=== PATIENT | female | born 1970 ===

== ENCOUNTER 2017-02-14 04:44 | Observation (INO) | payer BC ==
--- NOTE | ~2017-02-14 | OP ---
Record Of Operation [facility] [address] [place]. [address] NAME: TOÑO BRENNAN V : 74 STATUS : ADM Johnathan PAT#: [id number] AGE: 46 ADM/REG DATE : 02/14/17 MR#: [id number] REPORT SERV DATE: 02/14/17 DICTATED BY: LOGAN ROBISON DATE: 02/14/17 REPORT STATUS : Draft TRANSCRIBED BY: MODL DATE: 02/14/17 DATE OF PROCEDURE: 02/14/2017 PREOPERATIVE DIAGNOSIS: Right trimalleolar ankle fracture. POSTOPERATIVE DIAGNOSIS: Right trimalleolar ankle fracture. PROCEDURE: Open treatment of right trimalleolar ankle fracture without fixation of posterior lip. SURGEON: Logan Robison MD ANESTHESIA: General. ESTIMATED BLOOD LOSS: Ten. IMPLANTS: Arthrex ankle system. SPECIMEN: None. ANTIBIOTICS: Ancef was given prior to incision. HISTORY: The patient is a 46-year-old, who fell last night while dancing and sustained a trimalleolar ankle fracture. We discussed risks and benefits of surgery and nonoperative treatment with her. She elected for surgery due to displacement of the fracture. We discussed risks including cardiopulmonary complication from anesthesia, damage to surrounding tissues, infection, wound healing complications, nonunion, failure of implants. OPERATIVE NOTE: The patient was seen in the preoperative area, consented, and marked. We answered all questions, she had to her satisfaction. She was then taken back to the operative suite and placed in supine position under general anesthesia. We prepped and draped the right leg in a sterile fashion, and then paused to perform a time-out confirming the correct patient, procedure, diagnosis, and extremity. We made an incision over the right distal fibula and dissected down to the distal fibula. I identified the fracture, it was comminuted fracture with two posterior butterfly fragments. We were able to reduce the distal fragment to the proximal fragment and held in place with a clamp. I then placed a plate laterally. We pinned our plate in place and then checked on fluoroscopy to confirm the correct placement of our implants and our fracture reduction. We then fixated our plate with four screws proximally and five screws distally holding our fracture appropriately reduced. I used fluoroscopy throughout the process of this implant placement. When that was completed, we took x-rays of the mortise and the fibula was well aligned. We then turned our attention to the medial malleolus. I made an incision directly over the medial malleolus, dissected down the fracture line. I was able to manually reduce the fracture under direct visualization, placed a clamp across Record Of Operation [facility] [address] [place]. [address] NAME: TOÑO BRENNAN V : 74 STATUS : ADM Johnathan PAT#: [id number] AGE: 46 ADM/REG DATE : 02/14/17 MR#: [id number] REPORT SERV DATE: 02/14/17 DICTATED BY: LOGAN ROBISON DATE: 02/14/17 REPORT STATUS : Draft TRANSCRIBED BY: MODL DATE: 02/14/17 and then placed two pins from distal to proximal up across the fracture. I then placed two 4.0 cannulated screws over these pins under fluoroscopy guidance. When that was completed, we took our final x-rays, AP, lateral, mortise x-rays as well as stress x-ray. When that was completed, we irrigated all the wounds, closed the wounds, placed in a sterile splint. She was awakened with no complications, taken to the PACU in stable condition. POSTOPERATIVE PLAN: She will be discharged home today. We will follow her up in two weeks. XENIA/REI Logan Robison MD / [id number] CC: Logan Robison MD
--- NOTE | ~2017-02-14 | HP ---
History And Physical [address] [place]. [address] NAME: TOÑO BRENNAN V : 74 STATUS : ADM Johnathan PAT#: [id number] AGE: 46 ADM/REG DATE : 02/14/17 MR#: [id number] REPORT SERV DATE: 02/14/17 DICTATED BY: LOGAN ROBISON DATE: 02/14/17 REPORT STATUS : Draft TRANSCRIBED BY: MODL DATE: 02/14/17 DATE OF ADMISSION: 02/14/2017 CHIEF COMPLAINT: Right ankle fracture. HISTORY: This is a 46-year-old female who was dancing and twisted her ankle and injured herself sustained a right ankle fracture. Seen in the emergency department, unable to weight bear, complained of pain, admitted to the hospital. She complains of severe pain in her right ankle. She has no other complaints. She denies any heart or lung problems. She denies any previous history of any DVTs. PAST MEDICAL HISTORY: She has depression, anxiety. PAST SURGICAL HISTORY: She had a total hysterectomy, bilateral carpal tunnels. ALLERGIES: NONE. MEDICATIONS: She takes hormone replacement. SOCIAL HISTORY: She owns her own business. She drink socially. She does not smoke. FAMILY HISTORY: Noncontributory. REVIEW OF SYSTEMS: Review of systems x10 is negative except for above. PHYSICAL EXAMINATION: GENERAL: Well-developed, well-nourished female, in no acute distress. HEENT: Normocephalic, atraumatic. RESPIRATORY: Nonlabored respirations. Equal chest rise bilaterally. MUSCULOSKELETAL: Swollen right lower extremity, tenderness to palpation around her ankle. 2+ pulse. SKIN: No rashes or lesions. PSYCH: Appropriate mood and affect. NEURO: Alert and oriented x3. Neuro is intact in right lower extremity. X-rays showed trimalleolar ankle fracture. The plan is for open reduction and internal fixation of trimalleolar ankle fracture today. We will plan for surgical intervention. We discussed the risks and benefits of with her and she wants to proceed, so we will plan for surgery for open treatment of this trimalleolar ankle fracture, right ankle today. BSM/MODL History And Physical [address] [place] [address] NAME: TOÑO BRENNAN V : 74 STATUS : ADM Johnathan PAT#: [id number] AGE: 46 ADM/REG DATE : 02/14/17 MR#: [id number] REPORT SERV DATE: 02/14/17 DICTATED BY: LOGAN ROBISON DATE: 02/14/17 REPORT STATUS : Draft TRANSCRIBED BY: MODL DATE: 02/14/17 oLgan Robison MD / [id number] CC: Logan Robison MD
[2017-02-14 04:16] LABS: BASOPHILS 0.4 %; BASOPHILS ABSOLUTE 0.05 10/3/uL (0.0-0.16); EOSINOPHILS 0.6 %; EOSINOPHILS ABSOLUTE 0.07 10/3/uL (0.0-0.53); HEMOGLOBIN 12.4 g/dL (12.0-16.0); IMMATURE GRANULOCYTES 0.4 %; IMMATURE GRANULOCYTES ABSOLUTE 0.05 10/3/uL (0.0-0.11); LYMPHOCYTES 29.2 %; LYMPHOCYTES ABSOLUTE 3.44 10/3/uL (0.67-4.30); MEAN CORPUSCULAR HEMOGLOB 30.2 pg (26.0-34.0); MEAN PLATELET VOLUME 8.6 fL (9.2-13.0); MONOCYTES 7.2 %; MONOCYTES ABSOLUTE 0.85 10/3/uL (0.21-1.20); NEUTROPHILS 62.2 %; NEUTROPHILS ABSOLUTE 7.31 10/3/uL (2.02-8.40); PLATELET COUNT 341 10/3/uL (150-400); RBC DISTRIBUTION WIDTH 12.7 % (12.0-16.0); RED CELL COUNT 4.11 10/6/uL (4.0-5.6)
[2017-02-14 04:21] LABS: ER CBC TAT 0 Hrs 05 Mins; HEMATOCRIT 36.5 % (36.0-48.0); MANUAL DIFF NO %; MEAN CORPUSCULAR VOLUME 88.8 fL (80-100); WHITE BLOOD CELLS 11.8 10/3/uL (4.5-10.5)
[2017-02-14 04:28] LABS: INTERNATIONAL NORMAL RATI 1.1 UNITS (-); PARTIAL THROMBO TIME 29.3 SEC (22.5-37.2)
[2017-02-14 04:32] LABS: A/G RATIO 0.9 (0.7-1.9); ALBUMIN 3.5 G/DL (3.5-5.0); ALKALINE PHOSPHATASE 79 U/L (45-117); BUN (BLOOD UREA NITROGEN) 14 MG/DL (6-23); CALCIUM, SERUM 8.2 MG/DL (8.5-10.4); CHLORIDE, SERUM 106 MMOL/L (96-112); CO2 (CARBON DIOXIDE) 20 MMOL/L (24-34); CREATININE 0.77 MG/DL (0.55-1.02); GFR AFRICAN AMERICAN 109 ML/MIN (>=60); GFR NON AFRICAN AMERICAN 94 ML/MIN (>=60); GLOBULIN 3.8 G/DL (2.5-4.1); GLUCOSE, SERUM 114 MG/DL (60-99); SGOT(AST) 13 U/L (5-40); SGPT(ALT) 27 U/L (5-65); SODIUM, SERUM 141 MMOL/L (135-148); TOTAL BILIRUBIN 0.2 MG/DL (0-1.2); TOTAL PROTEIN 7.3 G/DL (6.0-8.5)
[2017-02-14 04:37] LABS: POTASSIUM, SERUM 3.3 MMOL/L (3.5-5.3)
[2017-02-14 04:55] LABS: WBC (NOT ORDERED) (RFLEX) 0 (0-5)
[2017-02-14 05:22] LABS: ASCORBIC ACID (UR NOT ORDER) NEG (NEG); BILIRUBIN, URINE NEGATIVE (NEG); KETONE, URINE NEGATIVE (NEG); LEUKOCYTE ESTERASE(NOT OR NEG (NEG); NITRITE (URINE) NEG (NEG)
[2017-02-14 05:24] LABS: ER URINALYSIS TAT 0 Hrs 33 Mins
[2017-02-14] MEDS ORDERED: ZOFRAN4 PO (16:51)
[2017-02-14] MEDS ORDERED: PCET PO (16:51)
[2017-02-14] MEDS ORDERED: ASA5GR PO (16:52)
== END 2017-02-14 19:47 | disposition home or self-care (01) ==
LOC: ER 04:44 → 3SO 04:54
PROVIDERS: Nurse Practitioner; Orthopaedic Surgery Sports Medicine
PROC: 0QSG04Z Reposition Right Tibia with Internal Fixation Device, Open Approach (ICD-10-PCS; 2017-02-14)
PROC: 0QSJ04Z Reposition Right Fibula with Internal Fixation Device, Open Approach (ICD-10-PCS; principal; 2017-02-14 12:45)
DX: S82.851A Displaced trimalleolar fracture of right lower leg, initial encounter for closed fracture (principal); X50.1XXA Overexertion from prolonged static or awkward postures, initial encounter; Y93.41 Activity, dancing; F32.9 Major depressive disorder, single episode, unspecified; F41.9 Anxiety disorder, unspecified; Z90.710 Acquired absence of both cervix and uterus; Z98.890 Other specified postprocedural states; Z23 Encounter for immunization; Z79.890 Hormone replacement therapy
CPT/HCPCS: 36415; 71010; 73610-RT; 80053; 81001; 85025; 85610; 85730; 86850; 86900; 86901; 93005; 96374; 96375; 96376; 99285; A9270-GY; C1713; G0378; G0480; J0690; J1170; J1885; J2175; J2250; J2405; J2710; J3010